=== PATIENT | male | born 1965 | race Caucasian/White ===

== ENCOUNTER → 2017-03-17 | Outpatient (CLI) | payer OTHER ==
[~2017-03-17] MED LIST: CITA20TA9 PO; CLB100 PO; CYCL10TA6 PO; GABA800T PO; HYDR-4079 PO; MELO7.5T5 PO; [UNRECOGNIZED DRUG - OTHER]
--- NOTE | 2017-03-17 16:15 | DIAGNOSTIC IMAGING REPORT ---
VENOUS DOPP LOWER EXT UNILAT CLINICAL HISTORY: RT LEG PAIN HX OF DVT pain. Edema. TECHNIQUE: Venous Doppler COMPARISON STUDY: None FINDINGS: Normal study IMPRESSION: Normal study right leg The above report was generated using voice recognition software. It may contain grammatical, syntax or spelling errors. Electronically signed by: Guilherme Hollins M.D. 03/17/2017 4:13 PM Dictated Date/Time: 03/17/2017 4:13 PM
== END | disposition home or self-care (01) ==
LOC: C.ULTR 15:27
PROVIDERS: ATTEND Emergency Medicine
DX: M79.604 Pain in right leg (principal); Z86.718 Personal history of other venous thrombosis and embolism

== ENCOUNTER 2017-05-27 05:49 | Day surgery (SDC) | payer OTHER ==
[~2017-05-27] VITALS: Ht 177.8 cm; Wt 116.0 kg
[~2017-05-27 05:49] MED LIST changes: +SODIUM CHLORIDE 0.9% 1000ML 1,000 ML IV SCH; +WARF5TAB7 PO
[2017-05-27] MEDS ORDERED: WARF-284 PO (06:33)
[2017-05-27 06:37] VITALS: BP 137/97; PULSE 103; TEMP 36.6; O2SAT 98; Ht 177.8 cm; Wt 116.0 kg
--- NOTE | 2017-05-27 07:45 | History and Physical ---
History & Physical Date May 27, 2017. History of Present Illness Mr. 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 The patient states that initially developed ulceration in the setting of an accident several years ago; however, since that time has had recurrent ulcerations in 1 spot above his right medial malleolus. Has been intermittently treated by the [facility] and has been followed by the [facility] since February of 2016. He underwent a venous reflux ultrasound which showed a pathologic take down inspector at the right ankle just above the level of the medial malleolus. There was no significant GSV or SSV pathologic reflux. Past Medical/Surgical History 1. Quan's esophagus. 2. Osteoarthritis. 3. Anxiety. Additional History Hepatic Disease: No Endocrine Disorder: No Kidney Disease: No Hypertension: Yes Heart Disease: No Bleeding Tendencies: Yes Infectious Diseases: No Allergies Coded Allergies: No Known Allergies (Unverified , 05/27/17) Home Medications Scheduled Celecoxib (Celebrex), 200 CAP PO BID Citalopram Hydrobromide (Celexa), 1 TAB PO DAILY Cyclobenzaprine Hcl (Flexeril), 1 TAB PO TID Gabapentin (Neurontin), 800 MG PO QID Meloxicam (Mobic), 7.5 MG PO DAILY Warfarin Sod (Jantoven), 5 MG PO sun-thur Warfarin Sodium (Warfarin Sodium), 7.5 MG PO [id number] Scheduled PRN Hydrocodone/Acetaminophen 10MG/325MG ([place] 10MG/325MG), 1 TAB PO Q4H PRN for Pain Miscellaneous Medications [dexalon] Physical Examination Skin: warm/dry ENT: normal ENT inspection Respiratory/Chest: lungs clear, normal breath sounds Cardiovascular: regular rate, rhythm, no edema Abdomen / GI: normal bowel sounds, non tender Extremities: + pertinent finding (healed ulceration over right medial malleolous) Neurologic/Psych: no motor/sensory deficits, alert Diagnosis Chronic venous insufficiency ASA Classification: ASA Class II Plan of Treatment right take down inspector endovenous ablation.
--- NOTE | 2017-05-27 07:46 | Pre Sedation Assessment ---
Pre Sedation Assessment General Date of Sedation: May 27, 2017. Vital Signs Past 12 Hours Date Time Temp Pulse Resp B/P (MAP) Pulse Ox O2 Delivery O2 Flow Rate FiO2 05/27/17 06:37 36.6 103 18 137/97 (110) 98 Room Air Review Cardiovascular: regular rate, rhythm, no edema Lungs: chest non-tender, lungs clear Pre-Sedation Airway Assessment Smoking Status: Current Every Day Smoker Hx of Sleep Apnea: No Hx of difficult intubation: No Short Thick Neck: No Thyro-mental Distance: > 3 Finger Breadths Oral Cavity: WNL Mallampati Classification: Class III ASA Classification: Class II NPO Status Date of Last Intake of Fluids: May 27, 2017 Time of Last Intake of Fluids: 0530 Date of Last Intake of Solids: May 26, 2017 Time of Last Intake of Solids: 1900 Procedure Planning Contraindications for Sedation: None Current Medications Reviewed: Yes Notes The planned sedation has been discussed with the patient. Informed Consent was obtained. I have identified the patient, determined the appropriateness of sedation and have assessed the patient immediately prior to the procedure. All medicine(s) and interventions are by my order.
[2017-05-27] MEDS ORDERED: LIDOCAINE HCL 1% 20 ML VIAL ONE (07:47)
[2017-05-27] MEDS ORDERED: MIDAZOLAM HCL 1 MG/ML 2ML VIAL ONE (07:48)
[2017-05-27] MEDS ORDERED: LIDOCAINE/EPINEPHRINE 1% INJ 50 ML VIAL ONE (07:48)
[2017-05-27] MEDS ORDERED: FENTANYL CITRATE INJ 50 MCG/1 ML 2 ML VIAL ONE (07:48)
[2017-05-27] MEDS ORDERED: SODIUM BICARB 8.4% INJ 50 MEQ/50 ML SYR IV ONE (07:48)
[2017-05-27] MEDS ORDERED: LIDOCAINE/EPINEPHRINE 1% 20 ML VIAL ONE (07:55)
[2017-05-27] MEDS ORDERED: ORM MISCELLANEOUS MED XX ONE (08:27)
[2017-05-27] MEDS ORDERED: LIDOCAINE HCL 1% 20 ML VIAL INJ ONE ×2 (08:28→08:34)
--- NOTE | 2017-05-27 08:48 | Post Sedation Assessment ---
Post Sedation Assessment General Date of Sedation May 27, 2017. Vital Signs: Vital Signs Past 12 Hours Date Time Temp Pulse Resp B/P (MAP) Pulse Ox O2 Delivery O2 Flow Rate FiO2 05/27/17 08:05 Room Air 05/27/17 06:37 36.6 103 18 137/97 (110) 98 Room Air Post Procedure Recovery Score Activity: (2) Moves 4 extremities * Respiration: (2) Deep breath/cough Circulation: (2) +/-20% PreAnes Value Consciousness: (2) Fully Awake Oxygen Saturation: (2) > 92% On Room Air Discharge Sedation Level of Care: Phase I Post Sedation Plan On clinical assessment, the patient appears to have tolerated the sedation without complications. Patient is recovering as anticipated. Patient will continue to be monitored by nursing and may be discharged when sedation discharge criteria are met per below protocol. Upon Completions of procedure and additional 15 minutes continue every 5 minute vital signs and the P.A.R. score; then discharge to a Phase I or Fast Track to Phase II per the following guidelines: * Discharge Patient to appropriate Phase II area if PAR is 8 or greater or return to pre- procedure baseline. The post - procedure orders will be as directed. * If PAR score is less than 8 or not return to pre-procedure baseline then patient will follow Phase I monitoring till PAR is reached for Phase II. The Phase I may be done in procedure room or may call to secure a Phase I area. * If naloxone or flumazenil are used for reversal, hold in Phase I for an additional 60 -120 minutes before discharge to Phase II. Please call the Sedation Physician to re-evaluate and complete post-note for discharge to Phase II area. Do NOT discharge from procedure sedation or Phase 1 until post- sedation evaluation note is complete by procedure /sedation MD Sedation Discharge Instructions to be given to the patient at discharge to home.
[2017-05-27 08:50] VITALS: BP 141/67; PULSE 70; TEMP 37; O2SAT 100
--- NOTE | 2017-05-27 08:55 | [facility] Operative Report ---
Operative Report Operative Date May 27, 2017. Pre-Operative Diagnosis chronic venous insufficeincy Post-Operative Diagnosis chronic venous insufficeincy Procedure(s) Performed Right semiconductor assembler vein ablation Surgeon Dr. Juan Roberts Record Press Tender Surgeon(s) none Estimated Blood Loss 2 ml Findings Refluxing pathologic semiconductor assembler at the level of right medial malleolus distal to prior ulceration. Fluids none Specimens none Drains None Anesthesia Type Local Complication(s) none Disposition yes Recovery Room / PACU Indications Chronic venous insufficiency (CEAP 5 disease) Description of Procedure Right pathologic semiconductor assembler identified via ultrasound Lidocaine injected at site RFA stylet inserted into semiconductor assembler 0.5 cm from deep system. Additional lidocaine injected around semiconductor assembler. RFA for total of 6:44 Post procedure no reflux in semiconductor assembler No evidence of DVT. Compression dressing placed I attest to the content of the Intraoperative Record and any orders documented therein. Any exceptions are noted below.
--- NOTE | 2017-05-27 08:57 | Discharge Instructions ---
Discharge Instructions Procedure Procedure Date: May 27, 2017. Reason for Visit: Venous Insufficiency. Discharge Discharge Date: May 27, 2017. Discharge Diagnosis: Venous insufficiency Last Recorded Wt (Kilograms): 116 Anesthesia Post Anesthesia Instructions: If you have had General Anesthesia or IV Sedation: * Do not drive today. * Resume driving when surgeon permits. * Do not make important decisions or sign legal documents today. * Call surgeon for: 1. Temperature elevations greater than 101 degrees F. 2. Uncontrollable pain. 3. Excessive bleeding. 4. Persistent nausea and vomiting. 5. Medication intolerance (nausea, vomiting or rash). * For nausea and vomiting use only clear liquids such as: tea, soda, bouillon until nausea subsides, then gradually increase diet as tolerated. * If you have any concerns or questions, call your surgeon's office. If physician is unavailable and it is an emergency, call 911 or go to the nearest emergency room. Instructions Activity Recommendations: limitations as noted below Recommended Home Diet: resume previous diet Allergies: Coded Allergies: No Known Allergies (Unverified , 05/27/17) Follow Up Additional Instructions: Up walking today. Avoid strenuous exercise for 3 days. Follow up Ultrasound as scheduled. BINDU wrap until scheduled ultrasound Post ultrasound wear compression stockings indefinitely. Any severe pain contact Dr. Roberts' office or present to the emergency room for evaluation for DVT. Follow-up with: As scheduled Dylan Cabrera Recommendations: Call your doctor if: * Temperature above 101 degrees * Pain not relieved by pain medicine ordered * There is increased drainage or redness from any incision * You have any unanswered questions or concerns. Your Doctors Instructions noted above were prepared by provider Timothy Roberts. Patient Signature Section: Patient Instructions Signature Page Riley Orantes Patient (or Guardian) Signature/Date: I have read and understand the instructions given to me by my caregivers. Caregiver/RN/Doctor Signature/Date: The above-named patient and/or guardian has received patient instructions on this date. + Original Patient Signature Page (only) stays with chart. Please make copy for patient.
== END 2017-05-27 09:45 | disposition home or self-care (01) ==
LOC: C.ACU 05:49
PROVIDERS: ATTEND Internal Medicine Interventional Cardiology
DX: I87.2 Venous insufficiency (chronic) (peripheral) (principal); F41.9 Anxiety disorder, unspecified; M19.90 Unspecified osteoarthritis, unspecified site; Z79.01 Long term (current) use of anticoagulants; Z79.899 Other long term (current) drug therapy